=== PATIENT | female | born 1985 | race Caucasian/White ===

== ENCOUNTER → 2021-12-28 | Outpatient (CLI) | payer OTHER | END | disposition home or self-care (01) | LOC: WCC 07:16 | DX: S61.303A Unspecified open wound of left middle finger with damage to nail, initial encounter (principal); W22.8XXA Striking against or struck by other objects, initial encounter; L03.012 Cellulitis of left finger; F41.9 Anxiety disorder, unspecified; F32.A Depression, unspecified; F25.8 Other schizoaffective disorders; F17.210 Nicotine dependence, cigarettes, uncomplicated ==

== ENCOUNTER → 2022-01-03 | Outpatient (CLI) | payer OTHER | LOC: OPSV 14:00 | DX: L03.012 Cellulitis of left finger (principal) | CPT/HCPCS: 96365; J0875; J7060 ==

== ENCOUNTER → 2022-01-03 | Outpatient (CLI) | payer OTHER | END | disposition home or self-care (01) | LOC: WCC 07:27 | DX: S61.303A Unspecified open wound of left middle finger with damage to nail, initial encounter (principal); S61.302A Unspecified open wound of right middle finger with damage to nail, initial encounter; X58.XXXA Exposure to other specified factors, initial encounter; R22.31 Localized swelling, mass and lump, right upper limb; F41.9 Anxiety disorder, unspecified; F32.A Depression, unspecified; F25.8 Other schizoaffective disorders; F17.210 Nicotine dependence, cigarettes, uncomplicated | CPT/HCPCS: 97597 ==

== ENCOUNTER → 2022-01-18 | Outpatient (CLI) | payer OTHER | LOC: WCC 07:54 | DX: L02.511 Cutaneous abscess of right hand (principal); L02.512 Cutaneous abscess of left hand; L03.011 Cellulitis of right finger; L03.012 Cellulitis of left finger; Z72.0 Tobacco use; F41.1 Generalized anxiety disorder; F32.9 Major depressive disorder, single episode, unspecified; F25.8 Other schizoaffective disorders; R22.31 Localized swelling, mass and lump, right upper limb ==

== ENCOUNTER → 2022-02-01 | Outpatient (CLI) | payer OTHER | LOC: WCC 07:56 | DX: S61.202A Unspecified open wound of right middle finger without damage to nail, initial encounter (principal); L03.012 Cellulitis of left finger; F41.1 Generalized anxiety disorder; F32.9 Major depressive disorder, single episode, unspecified; F25.8 Other schizoaffective disorders; R22.31 Localized swelling, mass and lump, right upper limb; L03.011 Cellulitis of right finger; L02.512 Cutaneous abscess of left hand; L02.511 Cutaneous abscess of right hand; X58.XXXA Exposure to other specified factors, initial encounter; Z72.0 Tobacco use ==